=== PATIENT | female | born 1955 | race Caucasian/White ===

== ENCOUNTER 2020-01-14 17:22 | Emergency (ER) | payer OTHER ==
[~2020-01-14] VITALS: Ht 152.4 cm; Wt 59.9 kg
[2020-01-14 17:34] VITALS: BP 157/64; Ht 152.4 cm; Wt 59.9 kg
== END 2020-01-14 17:57 | disposition home or self-care (01) ==
LOC: ED 17:22
DX: J20.9 Acute bronchitis, unspecified (principal); J02.9 Acute pharyngitis, unspecified